=== PATIENT | male | born 1965 | race Caucasian/White ===

== ENCOUNTER 2021-09-12 06:16 | Day surgery (SDC) | payer BC, OTHER ==
[~2021-09-12 06:16] MED LIST: Sodium Chloride 0.9% 10 ML Syringe FLUSH PRN
[2021-09-12] MEDS ORDERED: Glycopyrrolate 0.2 MG/ML 5 ML MDV IV ONE (06:17)
[2021-09-12] MEDS ORDERED: Rocuronium 100 MG/10 ML MDV IV ONE (06:17)
[2021-09-12] MEDS ORDERED: Lactated Ringers 1,000 ML IV ONE (06:17)
[2021-09-12] MEDS ORDERED: ePHEDrine 50 MG/ML SDV IV ONE (06:17)
[2021-09-12] MEDS ORDERED: Ketorolac 30 MG/ML SDV IVPUSH ONE (06:17)
[2021-09-12] MEDS ORDERED: Ondansetron 4 MG/2 ML SDV IVPUSH ONE (06:17)
[2021-09-12] MEDS ORDERED: Propofol 200 MG/20 ML SDV IV ONE (06:17)
[2021-09-12] MEDS ORDERED: Midazolam 1 MG/ML 2 ML SDV IV ONE (06:17)
[2021-09-12] MEDS ORDERED: fentaNYL 100 MCG/2 ML SDV IV ONE (06:17)
[2021-09-12] MEDS ORDERED: Neostigmine Methylsulfate 10 MG/10 ML MDV IVPUSH ONE (06:17)
[2021-09-12] MEDS ORDERED: Lidocaine 2% 5 ML SDV INJECT ONE (06:17)
[2021-09-12] MEDS ORDERED: Succinylcholine 200 MG/10 ML MDV IV ONE (06:17)
[2021-09-12] MEDS ORDERED: Dexmedetomidine 200 MCG/2 ML SDV IV ONE (06:17)
[2021-09-12] MEDS: Lactated Ringers 1,000 ML IV SCH (07:08)
[2021-09-12] MEDS: Bupivacaine 0.5% 30 ML SDV INJECT ONE (07:27)
[2021-09-12] MEDS: Lidocaine 2% with EPINEPHrine 1:100,000 20 ML MDV INJECT ONE (07:27)
[2021-09-12] MEDS ORDERED: ceFAZolin 2 GM in Sodium Chloride 0.9% 100 ML IV ONE (07:30)
== END 2021-09-12 10:15 | disposition home or self-care (01) ==
LOC: FB.SDS 06:16
PROVIDERS: ATTEND Surgery
DX: K42.0 Umbilical hernia with obstruction, without gangrene (principal); E78.00 Pure hypercholesterolemia, unspecified; E66.01 Morbid (severe) obesity due to excess calories; F17.210 Nicotine dependence, cigarettes, uncomplicated; I10 Essential (primary) hypertension; Z88.5 Allergy status to narcotic agent; Z79.82 Long term (current) use of aspirin; Z79.899 Other long term (current) drug therapy; Z68.36 Body mass index [BMI] 36.0-36.9, adult
CPT/HCPCS: 00750-QZ; 88302; 88305; 94150; J0330; J0690; J1885; J2250; J2405; J2704; J2710; J3010; J3490; J7120